=== PATIENT | male | born 1955 | race Caucasian/White ===

== ENCOUNTER 2022-07-22 06:22 | Day surgery (SDC) | payer MEDICARE, BC ==
[~2022-07-22] VITALS: Ht 172.7 cm; Wt 80.0 kg
--- NOTE | ~2022-07-22 | OR ---
[facility] [address], [place] [address] Draft DATE OF OPERATION: 07/22/2022 SURGEON: Pia Motta MD PREOPERATIVE DIAGNOSIS: Colon screening. POSTOPERATIVE DIAGNOSES: 1. Sigmoid diverticulosis. 2. Adenomatous polyp, right colon (excised). PROCEDURES: Total colonoscopy to cecum with cold morcellation and polypectomy x1. ANESTHESIA: Intravenous sedation, fentanyl 100 mcg, and Versed 6 mg. INDICATIONS: This 67-year-old white man is a patient of Dr. Paredes. He underwent colonoscopy 13 years ago, which was normal. He has no symptoms of bleeding, diarrhea, or constipation and no family history of colon cancer. He is admitted to undergo screening colonoscopy. He understands the risks of bleeding, infection, and perforation. FINDINGS: The prep was excellent. Complete colonoscopy was undertaken to the cecum. There were diverticula of the sigmoid and left colon. There was a small polyp of the right colon, which was adenomatous in appearance, was excised completely with cold morcellation technique. DESCRIPTION OF PROCEDURE: The patient was brought to the endoscopy suite and placed in lateral decubitus position given intravenous sedation to the point of slurred speech and nystagmus. Digital rectal examination was normal. An Olympus video colonoscope was passed into the rectum and manipulated throughout the colon ultimately intubating the cecum itself. The ileocecal valve and appendiceal orifice were normal. The scope was withdrawn and a small polyp was noted in the mid ascending colon, this was excised with cold morcellation technique. The scope was further withdrawn. The only other finding were diverticular change of the sigmoid and left colon. Retroflexed view of the rectum was normal. The scope was removed. The PATIENT NAME: PIA SIMMONS OPERATIVE REPORT DATE OF : 57 REPORT #: [id number] PHYSICIAN: PIA MOTTA MD PCP: RAMESH PAREDES MD REPORT IS CONFIDENTIAL AND NOT TO BE RELEASED WITHOUT AUTHORIZATION [facility] [address], [place] [address] Draft patient was taken to the recovery room in good condition. CONCLUDING DIAGNOSES: 1. Diverticulosis of sigmoid and left colon. 2. Small polyp, right colon, excised. PLAN: Recommend repeat colonoscopy in 5 years, sooner if symptoms should warrant. MD NINFA Shell/WEN /[id number] cc: Dr. Paredes Copies: ~ PATIENT NAME: PIA SIMMONS OPERATIVE REPORT DATE OF : 57 REPORT #: [id number] PHYSICIAN: PIA MOTTA MD PCP: RAMESH PAREDES MD REPORT IS CONFIDENTIAL AND NOT TO BE RELEASED WITHOUT AUTHORIZATION
[~2022-07-22 06:22] MED LIST: IRBESARTAN150 MG PO; LIPITOR20 MG PO; NORVASC5 MG PO
--- NOTE | 2022-07-22 08:11 | NUR ---
07/22/22 0811 Jocelyne Kaur 0805- PT ARRIVES TO PACU AWAKE AND TALKING. PT REPORTS NO DIZZINESS, NAUSEA, OR PAIN. RESP EVEN AND UNLABORED. OXYGEN SAT HIGH 90'S TO 100% ON 3L VIA CO2 NC. 0811- OXYGEN TITRATED OFF.
--- NOTE | 2022-07-24 15:40 | PATH ---
[facility] [address], [place] [address] Signed SPECIMEN(S): A ASCENDING/RIGHT COLON POLYP SPECIMEN SOURCE: A. ASCENDING/RIGHT COLON POLYP CLINICAL HISTORY: Screening FINAL PATHOLOGIC DIAGNOSIS: Ascending / right colon polyp: - Tubular adenoma (one fragment). JVR:[facility]:C2NR MICROSCOPIC EXAMINATION: Histologic sections of all submitted blocks are examined by light microscopy. These findings, together with the gross examination, support the pathologic diagnosis. GROSS DESCRIPTION: The specimen, labeled "KENNETH, per the requisition, ascending/right colon polyp," is received in formalin and consists of two pascal soft tissue fragments that measure 0.3 cm in greatest dimension. The specimen is entirely submitted in cassette (A1). CA (under the direct supervision of a pathologist) The Gross Description was prepared using a voice recognition system. The report was reviewed for accuracy; however, sound-alike word errors, addition and/or deletions may occur. If there is any question about this report, please contact Client Services. PERFORMING LABORATORY: The technical component was performed by [facility] [employer], [address] [place] [id number] (CLIA# [id number]). Professional interpretation was performed by [facility], [address] [place] [id number] (CLIA#: [id number]). Diagnostician: Kwabena Song MD Pathologist Electronically Signed 07/24/2022 PATIENT NAME: PIA SIMMONS PATHOLOGY DATE OF : 57 REPORT #: [id number] PHYSICIAN: EMILIO FRIAS PCP: RAMESH PAREDES MD REPORT IS CONFIDENTIAL AND NOT TO BE RELEASED WITHOUT AUTHORIZATION
== END 2022-07-22 08:35 | disposition home or self-care (01) ==
LOC: OPS 06:22 → DS 06:22 → OPS 07:30
PROVIDERS: ATTEND Surgery
PROC: 0DBF8ZX Excision of Right Large Intestine, Via Natural or Artificial Opening Endoscopic, Diagnostic (ICD-10-PCS; principal; 2022-07-22 07:30)
DX: Z12.11 Encounter for screening for malignant neoplasm of colon (principal); I10 Essential (primary) hypertension; E78.5 Hyperlipidemia, unspecified; D12.2 Benign neoplasm of ascending colon; K57.30 Diverticulosis of large intestine without perforation or abscess without bleeding; Z98.890 Other specified postprocedural states
CPT/HCPCS: 99153; G0500; J2250; J3010; J7121